=== PATIENT | female | born 1995 | race African-American/Black ===

== ENCOUNTER 2021-06-20 23:25 | Emergency (ER) | payer SELFPAY ==
[2021-06-21] MEDS ORDERED: Ibuprofen 800 MG TAB ONE
[2021-06-21 00:32] LABS: #Basophils 0.1 thou/uL (0.0-0.2); #Eosinphils 1.3 thou/uL (0.0-0.7); #Lymphocytes 1.6 thou/uL (1.20-3.40); #Monocytes 0.5 thou/uL (0.11-0.59); #Neutrophils 13.2 thou/uL (1.40-6.50); %Basophils 0.4 % (0.0-1.0); %Eosinophils 7.5 % (0.0-10.0); %Lymphocytes 9.6 % (21.0-51.0); %Monocytes 2.9 % (0.0-10.0); %Neutrophils 79.6 % (42.0-75.0); Hemoglobin 13.7 g/dL (12.0-16.0); Mean Corpuscular HGB CONC 33.4 g/dL (32.0-36.0); Mean Corpuscular Volume 89.8 fL (78.0-98.0); Mean Platelet Volume 6.1 fL (7.4-10.4); Platelet Count 352 thou/uL (130-400); RBC Distribution Width 12.8 % (11.5-14.5); Red Blood Cell (RBC) Count 4.57 mill/uL (4.20-5.40); White Blood Cell (WBC) Count 16.6 thou/uL (4.8-10.8)
[2021-06-21 00:46] LABS: ALT (SGPT) 13 U/L (8-55); AST (SGOT) 11 U/L (5-34); Albumin 3.8 g/dL (3.5-5.0); Alkaline Phosphatase 73 U/L (40-110); Anion Gap 14 mmol/L (10-20); BUN (Urea Nitrogen) 5 mg/dL (7.0-18.7); Bilirubin, Total 0.4 mg/dL (0.2-1.2); Calc. Creatinine Clearance 0 mL/min (70-130); Calcium 9.6 mg/dL (7.8-10.44); Carbon Dioxide 22 mmol/L (22-29); Chloride 105 mmol/L (98-107); Globulin 4.6 g/dL (2.4-3.5); Glucose 97 mg/dL (70-105); Potassium 3.5 mmol/L (3.5-5.1); Protein, Total 8.4 g/dL (6.0-8.3); Sodium 137 mmol/L (136-145)
[2021-06-21] MEDS ORDERED: Oxymetazoline HCl 0.05% (30 ML BOT) ONE (01:23)
[2021-06-21] MEDS ORDERED: cefTRIAXone\\ROCEPHIN 1 GM VIAL ONE (01:23)
[2021-06-21 16:00] LABS: SARS-CoV-2 PCR by NAA Not Detected (NotDetected)
== END 2021-06-21 02:34 | disposition home or self-care (01) ==
LOC: BURERS 23:25
DX: J02.9 Acute pharyngitis, unspecified (principal); L01.00 Impetigo, unspecified; Z20.822 Contact with and (suspected) exposure to COVID-19
CPT/HCPCS: 71045; 80053; 83605; 85025; 87040; 87081; 87430; 93005; 94760; 96365; J0696; U0003; U0005

== ENCOUNTER 2022-01-17 16:51 | Emergency (ER) | payer SELFPAY ==
[2022-01-17] MEDS ORDERED: Acetaminophen 500 MG TAB ONE (17:40)
[2022-01-17] MEDS ORDERED: Dexamethasone 10 MG/ML VIAL ONE (17:40)
[2022-01-17] MEDS ORDERED: AMOXicillin 250 MG CAP ONE (18:10)
== END 2022-01-17 18:18 | disposition home or self-care (01) ==
LOC: BURERS 16:51
DX: J10.1 Influenza due to other identified influenza virus with other respiratory manifestations (principal)
CPT/HCPCS: 87430; 87804; 99283; J1100

== ENCOUNTER 2022-04-26 16:23 | Emergency (ER) | payer SELFPAY ==
[2022-04-26 16:48] LABS: Bilirubin Small (Negative); Blood, Urine Moderate (Negative); Clarity Clear (Clear); Glucose, Urine (Dipstick) Negative (Negative); Ketone, Urine Trace mg/dL (Negative); Leukocyte Negative (Negative); Nitrite Negative (Negative); Protein, Urine (Dipstick) Trace mg/dL (Neg-Trace); Urobilinogen 0.2 mg/dL (Less than 2)
[2022-04-26 16:54] LABS: Bacteria/HPF Rare-Few HPF (None Seen); Pregnancy Test - Urine (BHCG) Negative (Negative); Pregu Control Background? CLEAR/WHITE (CLR/WHITE); Pregu Control Bar Appear? YES (CONTROL BAR); Squamous Epithelial 0-3 HPF (0-3); WBC/HPF 0-3 HPF (0-3)
[2022-04-26] MEDS ORDERED: Ondansetron PF 4 MG/2 ML Vial ONE (17:00)
[2022-04-26 17:20] LABS: ALT (SGPT) 14 U/L (8-55); AST (SGOT) 12 U/L (5-34); Albumin 3.8 g/dL (3.5-5.0); Alkaline Phosphatase 57 U/L (40-110); Anion Gap 14 mmol/L (10-20); BUN (Urea Nitrogen) 6 mg/dL (7.0-18.7); Bilirubin, Total 0.7 mg/dL (0.2-1.2); Calc. Creatinine Clearance 0 mL/min (70-130); Calcium 9.4 mg/dL (7.8-10.44); Carbon Dioxide 22 mmol/L (22-29); Chloride 104 mmol/L (98-107); Estimated GFR 77; Globulin 3.8 g/dL (2.4-3.5); Glucose 98 mg/dL (70-105); Potassium 3.9 mmol/L (3.5-5.1); Protein, Total 7.6 g/dL (6.0-8.3); Sodium 136 mmol/L (136-145)
[2022-04-26 17:22] LABS: Eosinophils 4 % (0-10); Hemoglobin 13.1 g/dL (12.0-16.0); Lymphocytes 24 % (21-51); MDiff Complete? YES; Mean Corpuscular HGB CONC 33.4 g/dL (32.0-36.0); Mean Corpuscular Volume 89.8 fL (78.0-98.0); Mean Platelet Volume 6.9 fL (7.4-10.4); Monocytes 2 % (0-10); Neutrophil 69 % (42-75); Platelet Count 298 thou/uL (130-400); RBC Distribution Width 13.2 % (11.5-14.5); Red Blood Cell (RBC) Count 4.37 mill/uL (4.20-5.40); White Blood Cell (WBC) Count 12.9 thou/uL (4.8-10.8)
[2022-04-26] MEDS ORDERED: cefTRIAXone\\ROCEPHIN 1 GM VIAL ONE (17:49)
[2022-04-26] MEDS ORDERED: Sodium Chloride 0.9% 100 ML ONE (17:50)
[2022-04-26] MEDS ORDERED: Fentanyl 100 MCG/2 ML VIAL ONE (17:57)
== END 2022-04-26 18:15 | disposition short-term general hospital (02) ==
LOC: BURERS 16:23
DX: K81.0 Acute cholecystitis (principal)
CPT/HCPCS: 36415; 74177; 80053; 81003; 81015; 81025; 85025; 96374; 96375; J0696; J2405; J3010; J3490

== ENCOUNTER 2022-07-01 00:01 | Emergency (ER) | payer SELFPAY ==
[2022-07-01] MEDS ORDERED: predniSONE 20 MG TAB ONE (00:15)
[2022-07-01] MEDS ORDERED: Sodium Chloride For Inhalation 0.9% 3 ML NEB ONE ×2 (01:03→01:08)
[2022-07-01] MEDS ORDERED: Albuterol Sulfate 2.5 mg/0.5 ml Neb ONE (01:03)
== END 2022-07-01 02:40 | disposition home or self-care (01) ==
LOC: BURERS 00:01
DX: J45.901 Unspecified asthma with (acute) exacerbation (principal); Z20.822 Contact with and (suspected) exposure to COVID-19
CPT/HCPCS: J7512; J7611; J7620; U0003; U0005